=== PATIENT | female | born 1955 | race Hispanic/Latino ===

== ENCOUNTER 2023-06-08 05:53 | Day surgery (SDC) | payer MEDICARE ==
[2023-06-03 12:53] VITALS: BP 133/67; PULSE 60; RESP 16
[2023-06-03 12:57] LABS: BASOPHILS # (AUTO) 0.04 K/uL (0.00-0.20); BASOPHILS % (AUTO) 0.8 % (0.0-5.0); EOSINOPHILS # (AUTO) 0.03 K/uL (0.00-0.70); EOSINOPHILS % (AUTO) 0.6 % (0.0-8.0); HEMATOCRIT 43.5 % (36-48); MEAN CORPUSCULAR HEMOGLOBIN 28.5 pg (27.0-33.0); MEAN CORPUSCULAR HGB CONC 32.4 g/dL (32.0-36.0); MEAN CORPUSCULAR VOLUME 87.9 fL (79-99); MONOCYTES # (AUTO) 0.3 K/uL (0.1-1.0); MONOCYTES % (AUTO) 6.4 % (3.0-13.0); NEUTROPHILS # (AUTO) 2.5 K/uL (1.8-7.7); NEUTROPHILS % (AUTO) 51.2 % (40.0-77.0); PLATELET COUNT (AUTO) 181 K/uL (130-400); RED BLOOD CELL COUNT(AUTO) 4.95 MIL/uL (4.00-5.50); RED CELL DISTRIBUTION WIDTH 13.2 % (11.0-15.5); WHITE BLOOD COUNT (AUTO) 4.9 K/uL (4.8-10.8)
[2023-06-03 13:00] LABS: CREATININE 0.5 mg/dL (0.5-1.5); POTASSIUM 3.8 mmol/L (3.5-5.1)
[2023-06-03 13:11] LABS: INR 0.94 (0.85-1.15)
[2023-06-03 13:13] LABS: PARTIAL THROMBOPLASTIN TIME 27.4 SEC (26.3-35.5)
[2023-06-08] VITALS (17 sets, daily range): BP systolic 109–143; BP diastolic 48–75; PULSE 56–64; RESP 14–17
[~2023-06-08] VITALS: Ht 154.9 cm; Wt 73.5 kg
[~2023-06-08 05:53] MED LIST: ALEN70TA80 PO; ASPI-1197 PO; ATOR40TA71 PO; FOLIC ACID PO; VITAMIN B12 PO; VITAMIN D PO
[2023-06-08] MEDS ORDERED: CEFAZOLIN SODIUM 2 GM VIAL ONE (06:24)
[2023-06-08] MEDS ORDERED: LACTATED RINGERS 1000ML 1,000 ML IV ONE (06:24)
[2023-06-08] MEDS ORDERED: DEXAMETHASONE SOD PHOSPHATE 10MG/ML 1ML VIAL ONE (06:59)
[2023-06-08] MEDS ORDERED: LIDOCAINE PF 100MG/5ML (2%) SYRINGE 5ML ONE (07:00)
[2023-06-08] MEDS ORDERED: ONDANSETRON 4MG INJ ONE (07:00)
[2023-06-08] MEDS ORDERED: NEOSTIGMINE 5MG/5ML SYR IV ONE (07:00)
[2023-06-08] MEDS ORDERED: ROCURONIUM 10MG/1ML SYR 10 MG/ML ML ONE (07:00)
[2023-06-08] MEDS ORDERED: PROPOFOL 10 MG/ML 20ML VIAL IV ONE (07:00)
[2023-06-08] MEDS ORDERED: GLYCOPYRROLATE 1 MG/5 ML SYRINGE ONE (07:00)
[2023-06-08] MEDS ORDERED: SUCCINYLCHOLINE CHLORIDE 20 MG/ML 10 ML VIAL ONE (07:00)
[2023-06-08] MEDS ORDERED: MIDAZOLAM HCL 1 MG/ML 2ML VIAL ONE (07:00)
[2023-06-08] MEDS ORDERED: FENTANYL CITRATE PF 50 MCG/1 ML 2ML VIAL ONE ×2 (07:01→08:28)
[2023-06-08] MEDS ORDERED: BUPIVACAINE/PF 0.5% 30ML VIAL ONE (07:24)
[2023-06-08] MEDS ORDERED: EPINEPHRINE PF 1MG (1:1,000) 1 MG/ML AMP ONE (07:24)
[2023-06-08] MEDS ORDERED: IOHEXOL-350 50ML VIAL IV ONE (07:41)
[2023-06-08] MEDS ORDERED: BUPIVACAINE/PF 0.5% 30ML VIAL INJ ONE (08:16)
[2023-06-08] MEDS ORDERED: EPINEPHRINE PF 1MG (1:1,000) 1 MG/ML AMP INJ ONE (08:16)
[2023-06-08] MEDS ORDERED: SUGAMMADEX SODIUM 200 MG/2 ML VIAL IV ONE (08:53)
[2023-06-08] MEDS ORDERED: TRAM50TA4 PO ×2 (08:53)
[2023-06-08] MEDS ORDERED: METH-662 PO ×2 (08:53)
[2023-06-08] MEDS ORDERED: GABA-529 PO ×2 (08:53)
[2023-06-08] MEDS ORDERED: DOCU-116 PO ×2 (08:53)
[2023-06-08] MEDS ORDERED: KETOROLAC 30MG VIAL (30MG/ML) ONE (09:53)
== END 2023-06-08 11:00 | disposition home or self-care (01) ==
LOC: DAH 05:53
PROVIDERS: ATTEND Surgery
DX: K81.1 Chronic cholecystitis (principal); I10 Essential (primary) hypertension; K21.9 Gastro-esophageal reflux disease without esophagitis; E78.5 Hyperlipidemia, unspecified; Z79.01 Long term (current) use of anticoagulants; Z79.899 Other long term (current) drug therapy; Z79.82 Long term (current) use of aspirin; Z86.718 Personal history of other venous thrombosis and embolism; Z90.710 Acquired absence of both cervix and uterus
CPT/HCPCS: 80048; 85025; 85610; 85730; 36415; 93005; 47562; 88304; A6260; A4663; J7030; J7120 ×2; C1758; J3010 ×2; J3490 ×3; J1100; J2710; J0330; J2001; J0171 ×2; J2250; J2704; J2405; J1885; Q9967; J0690; A4649 ×2; A4930 ×2; A4215; A4223; A4221; A4600

== ENCOUNTER 2023-06-12 19:28 | Emergency (ER) | payer MEDICARE ==
[~2023-06-12] VITALS: Ht 154.9 cm; Wt 73.5 kg
[~2023-06-12 19:28] MED LIST changes: +DOCU-116 PO; +GABA-529 PO; +METH-662 PO; +TRAM50TA4 PO
[2023-06-12 20:09] LABS: BASOPHILS # (AUTO) 0.02 K/uL (0.00-0.20); BASOPHILS % (AUTO) 0.2 % (0.0-5.0); EOSINOPHILS # (AUTO) 0.32 K/uL (0.00-0.70); EOSINOPHILS % (AUTO) 3.7 % (0.0-8.0); HEMATOCRIT 41.9 % (36-48); IMMATURE GRANULOCYTE ABSOLUTE 0.02 K/uL (0-1); LYMPHOCYTES # (AUTO) 1.9 K/uL (1.0-4.8); LYMPHOCYTES % (AUTO) 21.5 % (21.0-51.0); MEAN CORPUSCULAR HEMOGLOBIN 28.8 pg (27.0-33.0); MEAN CORPUSCULAR HGB CONC 33.2 g/dL (32.0-36.0); MEAN CORPUSCULAR VOLUME 86.7 fL (79-99); MONOCYTES # (AUTO) 0.9 K/uL (0.1-1.0); MONOCYTES % (AUTO) 10.4 % (3.0-13.0); NEUTROPHILS # (AUTO) 5.5 K/uL (1.8-7.7); PLATELET COUNT (AUTO) 182 K/uL (130-400); RED BLOOD CELL COUNT(AUTO) 4.83 MIL/uL (4.00-5.50); RED CELL DISTRIBUTION WIDTH 13.2 % (11.0-15.5); WHITE BLOOD COUNT (AUTO) 8.6 K/uL (4.8-10.8)
[2023-06-12 20:10] LABS: APPEARANCE,URINE CLEAR (CLEAR); BILIRUBIN,URINE NEGATIVE (NEGATIVE); COLOR,URINE LIGHT-YELLOW (YELLOW); GLUCOSE, URINE (UA) NEGATIVE (NEGATIVE); KETONES,URINE NEGATIVE (NEGATIVE); LEUKOCYTE ESTERASE ,URINE NEGATIVE Leu/uL (NEGATIVE); NITRATE,URINE NEGATIVE (NEGATIVE); OCCULT BLOOD,URINE NEGATIVE (NEGATIVE); PH,URINE 6.5 (5.0-8.0); PROTEIN,URINE NEGATIVE (NEGATIVE); UROBILINOGEN,URINE 0.2 mg/dL (0.2-1.0)
[2023-06-12 20:13] LABS: ADD UA MICROSCOPIC NO
[2023-06-12 20:18] LABS: CREATININE 0.7 mg/dL (0.5-1.5); POTASSIUM 3.8 mmol/L (3.5-5.1)
[2023-06-12 20:23] LABS: ALBUMIN 3.2 g/dL (3.5-5.0); BILIRUBIN,TOTAL 0.5 mg/dL (0.2-1.0)
[2023-06-12] MEDS ORDERED: IOHEXOL 350 MG/ML 100ML INFUS..BTL IV ONE (22:11)
[2023-06-12 23:09] VITALS: BP 116/61; PULSE 63; RESP 20; O2SAT 96
== END 2023-06-12 23:19 | disposition home or self-care (01) ==
LOC: EDH 19:28
DX: R07.89 Other chest pain (principal); R10.9 Unspecified abdominal pain; K21.9 Gastro-esophageal reflux disease without esophagitis; E78.00 Pure hypercholesterolemia, unspecified; Z79.82 Long term (current) use of aspirin; Z79.899 Other long term (current) drug therapy; Z98.890 Other specified postprocedural states
CPT/HCPCS: 99285; 71270; 71045; 84484; 80053; 85025; 81003; 36415; 93005; Q9967